=== PATIENT | male | born 1985 | race Caucasian/White ===

== ENCOUNTER 2019-12-04 15:57 | Emergency (ER) | payer BC ==
[2019-12-04] MEDS ORDERED: ACETAMINOPHEN 1000 MG/100 ML VIAL (NON FORMULARY) IVPB ONE (16:08)
[2019-12-04] MEDS ORDERED: SODIUM CHLORIDE 1,000 ML IV STA (16:08)
[2019-12-04] MEDS ORDERED: METOCLOPRAMIDE HCL INJECTION 10 MG/2 ML VIAL IVPB ONE (16:08)
[2019-12-04 16:09] VITALS: TEMP 99.1; BMI 25.0
--- NOTE | 2019-12-04 16:09 | PDOC ---
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 Admits to headache, nausea, vomiting and lightheadedness. Exam: No gross neuro deficits, VSS Orders: labs, IVF, meds Pt to proceed to the ER for further evaluation Discharge Disposition - Diagnosis Headache Qualifiers: Headache type: unspecified Headache chronicity pattern: acute headache Intractability: not intractable Qualified Code(s): R51 - Headache - Referrals - Patient Instructions - Post Discharge Activity
[2019-12-04 17:16] LABS: PH,URINE 6.5 (5.0-8.0); URINE APPEARANCE CLEAR; URINE BILIRUBIN NEGATIVE (NEGATIVE); URINE COLOR YELLOW; URINE GLUCOSE (UA) NEGATIVE (NEGATIVE); URINE KETONE TRACE (NEGATIVE); URINE LEUK ESTERASE NEGATIVE (NEGATIVE); URINE NITRITE NEGATIVE (NEGATIVE); URINE PROTEIN NEGATIVE (NEGATIVE); URINE UROBILINOGEN 0.2 mg/dL (0.2-1.0)
[2019-12-04 17:17] LABS: BASO % 0.5 % (0-2.0); EOS % 0.6 % (0-4.5); HEMATOCRIT 43.7 % (35.4-49); HEMOGLOBIN 14.6 GM/dL (11.7-16.9); LYMPH % 12.9 % (8-40); MCH 31.9 pg (25.7-33.7); MCHC 33.4 g/dl (32.0-35.9); MEAN CELL VOLUME 95.3 fl (80-96); MEAN PLT VOLUME 9.1 fl (7.5-11.1); MONO % 12.1 % (3.8-10.2); NEUT % 73.9 % (42.8-82.8); PLATELET COUNT 209 K/MM3 (134-434); RBC 4.58 M/mm3 (4.00-5.60); RDW 13.2 % (11.9-15.9); WHITE BLOOD COUNT 5.6 K/mm3 (4.0-10.0)
[2019-12-04] MEDS ORDERED: ACETAMINOPHEN INJECTION 100 ML IVPB ONE (17:20)
[2019-12-04] MEDS ORDERED: METOCLOPRAMIDE HCL INJECTION 10 MG/2 ML VIAL ONE (17:20)
--- NOTE | 2019-12-04 17:24 | PDOC ---
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 Patient reported he has been feeling headache, lightheadedness, heaviness in the head and nausea since incident. Patient has not taken anything for symptoms. Denies history of migraines. Denies blurry vision, change in vision. Denies head trauma. Denies any other symptoms Past History - Medical History Allergies/Adverse Reactions: Allergies Allergy/AdvReac Type Severity Reaction Status Date / Time amoxicillin [Amoxicillin] Allergy Verified 12/04/19 16:05 Penicillins Allergy Verified 12/04/19 16:05 Asthma: Yes COPD: No - Immunization History Immunization Up to Date: Yes - Psycho-Social/Smoking History Smoking Status: Yes Smoking History: Never smoked Number of Cigarettes Smoked Daily: 12 - Substance Abuse Hx (Audit-C & DAST Scrn) How often the patient has a drink containing alcohol: 2-4 times / month Number of drinks the patient has on a typical day: 5 or 6 How often the patient has six or more drinks on one occasion: Weekly Score: In Men: 4 or > Positive; In Women: 3 or > Positive: 7 Screen Result (Pos requires Nsg. Audit-10AR): Positive In the last yr the pt used illegal drug/Rx for NonMed reason: No Score: Yes response is considered Positive: 0 Screen Result (Positive result requires Nsg. DAST-10): Negative Review of Systems - Review of Systems Able to Perform ROS?: Yes Is the patient limited Kyr[place]z proficient: No Constitutional: No: Chills, Fever, Malaise HEENTM: No: Symptoms Reported, See HPI, Eye Pain, Blurred Vision, Tearing, Recent change in vision, Double Vision, Cataracts, Ear Pain, Ocular Prothesis, Ear Discharge, Nose Pain, Nose Congestion, Tinnitus, Nose Bleeding, Hearing Loss, Throat Pain, Throat Swelling, Mouth Pain, Dental Problems, Difficulty Swallowing, Mouth Swelling, Other Respiratory: No: Symptoms reported, See HPI, Cough, Orthopnea, Shortness of Breath, SOB with Exertion, SOB at Rest, Stridor, Wheezing, Productive cough, Hemoptysis, Other Cardiac (ROS): Yes: Symptoms Reported, See HPI, Lightheadedness. No: Chest Pain, Edema, Irregular Heart Rate, Palpitations, Syncope, Chest Tightness, Other ABD/GI: Yes: Symptoms Reported, See HPI, Nausea, Vomiting. No: Constipated, Diarrhea, Abdominal cramping Musculoskeletal: No: Symptoms Reported Integumentary: No: Symptoms Reported Neurological: Yes: Symptoms reported, See HPI, Headache. No: Pre-Existing Deficit, Seizure, Weakness, Unsteady Gait, Dizziness All Other Systems: Reviewed and Negative *Physical Exam - Vital Signs Last Vital Signs Temp Pulse Resp BP Pulse Ox 99.1 F 112 H 18 164/101 H 98 12/04/19 16:05 12/04/19 16:05 12/04/19 16:05 12/04/19 16:05 12/04/19 16:05 - Physical Exam 12/04/19 17:25 GENERAL: Well developed, well nourished. Awake and alert. No acute distress. HEENT: Normocephalic, atraumatic. PERRLA, EOMI. No conjunctival pallor. Sclera are non- icteric. Moist mucous membranes. Oropharynx is clear. NECK: Supple. Full ROM. No JVD. . No thyromegaly. No lymphadenopathy. CARDIOVASCULAR: Regular rate and rhythm. No murmurs, rubs, or gallops. Distal pulses are 2+ and symmetric. PULMONARY: No evidence of respiratory distress. Lungs clear to auscultation bilaterally. No wheezing, rales or rhonchi. ABDOMINAL: Soft. Non-tender. Non-distended. No rebound or guarding. No organomegaly. Normoactive bowel sounds. MUSCULOSKELETAL Normal range of motion at all joints. SKIN: Warm and dry. Normal capillary refill. No rashes. No jaundice. NEUROLOGICAL: Alert, awake, appropriate. Cranial nerves 2-12 intact. No deficits to light touch in face, upper extremities and lower extremities. No motor deficits in the in face, upper extremities and lower extremities. Normal speech. Gait is normal without ataxia. PSYCHIATRIC: Cooperative. Good eye contact. Appropriate mood and affect. General Appearance: Yes: Nourished, Appropriately Dressed. No: Apparent Distress ED Treatment Course - LABORATORY CBC & Chemistry Diagram: 12/04/19 16:39 12/04/19 16:41 - ADDITIONAL ORDERS Additional order review: Laboratory Results 12/04/19 14:20 Urine Color Yellow Urine Appearance Clear Urine pH 6.5 Ur Specific [place] 1.010 Urine Protein Negative Urine Glucose (UA) Negative Urine Ketones Trace H Urine Blood Negative Urine Nitrite Negative Urine Bilirubin Negative Urine Urobilinogen 0.2 Ur Leukocyte Esterase Negative Medical Decision Making - Medical Decision Making 12/04/19 17:22 Patient with a history of asthma presented with complaint of headache, lightheadedness and nausea with vomiting 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 Patient reported he has been feeling headache, lightheadedness, heaviness in the head and nausea since incident. Patient has not taken anything for symptoms. Denies history of migraines. Denies blurry vision, change in vision. Denies head trauma. Denies any other symptoms Clinical exam unremarkable with normal neuro exam. Patient in no acute distress. Pupil equal and reflective to light bilateral. No pupil dilation or constriction. Patient walking with normal gait. Patient symptoms likely had a fall carbon monoxide inhalation. EKG shows normal sinus rhythm. Will do carboxyhemoglobin and basic blood work CBC and chemistry. IV hydration 1 L normal saline, Reglan 10 mg IV, Benadryl 12.5 mg IV and Tylenol 1 g IV ordered from triage for migraine headache. Reassess after lab result 12/04/19 19:11 CBC and chemistry lab unremarkable. ABG arterial gas normal. Patient reported complete improvement of symptoms with IV medication and hydration. Patient stable for discharge with advised to increase fluid intake, rest and follow-up with PCP. Discharge - Discharge Information Problems reviewed: Yes Clinical Impression/Diagnosis: Light headedness Headache Qualifiers: Headache type: unspecified Headache chronicity pattern: acute headache Intractability: not intractable Qualified Code(s): R51 - Headache Condition: Improved Disposition: HOME - Admission No - Follow up/Referral - Patient Discharge Instructions Patient Printed Discharge Instructions: DI for Carbon Monoxide Poisoning Additional Instructions: Your blood work is normal. Your lightheadedness likely caused by inhalation of carbon monoxide. You can take Tylenol as needed for headache. Increase fluid intake. Follow-up with your primary care - Post Discharge Activity
[2019-12-04 17:41] LABS: ALBUMIN 4.2 g/dl (3.4-5.0); BILIRUBIN,TOTAL 2.1 mg/dL (0.2-1); BLOOD UREA NITROGEN 11.7 mg/dL (7-18); CALCIUM 9.1 mg/dL (8.5-10.1); CREATININE 0.8 mg/dL (0.55-1.3); POTASSIUM 4.1 mmol/L (3.5-5.1); TOT PROT 8.2 g/dl (6.4-8.2)
[2019-12-04 18:38] LABS: ARTERIAL BLD GAS O2 SATURATION 97.5 mmHg (95-98); ARTERIAL BLOOD GAS BASE EXCESS 0.6 mmol/L (-2-2); ARTERIAL BLOOD GAS PO2 93.6 mmHg (80-100); ARTERIAL BLOOD GAS pH 7.446 (7.350-7.450)
[2019-12-04 18:59] VITALS: BP 124/90; PULSE 80
--- NOTE | 2019-12-05 10:17 | EKG ---
Test Reason : Blood Pressure : / mmHG Vent. Rate : 095 BPM Atrial Rate : 095 BPM P-R Int : 128 ms QRS Dur : 086 ms QT Int : 354 ms P-R-T Axes : 071 047 032 degrees QTc Int : 444 ms NORMAL SINUS RHYTHM WITH SINUS ARRHYTHMIA NORMAL ECG WHEN COMPARED WITH ECG OF 20-AUG-2008 09:49, VENT. RATE HAS INCREASED BY 33 BPM Confirmed by MD Juan Daniel, Ayaan ([id number]) on 12/05/2019 10:17:28 AM Referred By: Confirmed By:Ayaan Frances MD
== END 2019-12-04 19:07 | disposition home or self-care (01) ==
LOC: JER 15:57
PROC: 3E0333Z Introduction of Anti-inflammatory into Peripheral Vein, Percutaneous Approach (ICD-10-PCS; principal; 2019-12-04)
PROC: 3E033GC Introduction of Other Therapeutic Substance into Peripheral Vein, Percutaneous Approach (ICD-10-PCS; 2019-12-04)
PROC: 3E0337Z Introduction of Electrolytic and Water Balance Substance into Peripheral Vein, Percutaneous Approach (ICD-10-PCS; 2019-12-04)
DX: R51 Headache (principal); R42 Dizziness and giddiness
CPT/HCPCS: 36415; 36600; 80053; 81003; 82375; 82803; 85025; 87077; 87086; 93005; 93010; 99284-25; J0131

== ENCOUNTER 2021-11-14 09:49 | Inpatient (IN) | payer BC ==
[2021-11-14] MEDS ORDERED: diazePAM CARPU-JECT 10 MG/2 ML DISP.SYRIN IVPUSH ONE ×4 (10:32→12:41)
[2021-11-14] MEDS ORDERED: LACTATED RINGERS SOLUTION 1000 ML INFUS.BAG IV ONE ×2 (10:32→11:21)
[2021-11-14] MEDS ORDERED: FAMOTIDINE 20 MG/50 ML IVPB 20 MG/50 ML MG IVPB ONE ×2 (10:32→10:53)
[2021-11-14] MEDS ORDERED: diazePAM CARPU-JECT 10 MG/2 ML DISP.SYRIN ONE ×4 (10:34→13:04)
[2021-11-14 10:41] LABS: BASO % 0.4 % (0-2.0); EOS % 0.4 % (0-4.5); HEMATOCRIT 44.9 % (35.4-49); HEMOGLOBIN 15.5 GM/dL (11.7-16.9); LYMPH % 6.6 % (8-40); MCH 31.8 pg (25.7-33.7); MCHC 34.5 g/dl (32.0-35.9); MEAN CELL VOLUME 92.2 fl (80-96); MEAN PLT VOLUME 8.7 fl (7.5-11.1); MONO % 5.2 % (3.8-10.2); NEUT % 87.4 % (42.8-82.8); PLATELET COUNT 216 10^3/uL (134-434); RBC 4.87 M/mm3 (4.00-5.60); RDW 12.9 % (11.9-15.9); VENOUS BASE EXCESS 0.4 mmol/L (-2-2); VENOUS PCO2 29.1 mmHg (38-52); VENOUS PH 7.5 (7.310-7.410); WHITE BLOOD COUNT 11.5 K/mm3 (4.0-10.0)
[2021-11-14 10:47] LABS: INR 1.03 (0.83-1.09); PROTHROMBIN TIME (PATIENT) 11.9 SEC (9.7-13.0)
[2021-11-14 10:49] LABS: ACTIVATED PTT 29.9 SECONDS (25.2-36.5)
[2021-11-14] MEDS ORDERED: THIAMINE HCL 200 MG/2 ML VIAL IVPB ONE (10:57)
[2021-11-14] MEDS ORDERED: THIAMINE HCL 200 MG/2 ML VIAL ONE (11:00)
[2021-11-14 11:04] LABS: CHLORIDE 102 mmol/L (98-107); SODIUM 139 mmol/L (136-145)
[2021-11-14 11:06] LABS: ALBUMIN 4.2 g/dl (3.4-5.0)
[2021-11-14 11:07] LABS: ANION GAP 14 MMOL/L (8-16); CALCIUM 8.7 mg/dL (8.5-10.1); CO2 23 mmol/L (21-32); GLUCOSE,RANDOM 125 mg/dL (74-106); LIPASE 113 U/L (73-393); MAGNESIUM 1.8 mg/dL (1.8-2.4)
[2021-11-14 11:09] LABS: SGPT/ALT 68 U/L (13-61)
[2021-11-14 11:10] LABS: CREATININE 0.8 mg/dL (0.55-1.3); SGOT/AST 51 U/L (15-37)
[2021-11-14 11:11] LABS: BILIRUBIN,TOTAL 1.9 mg/dL (0.2-1); TOT PROT 8.3 g/dl (6.4-8.2)
[2021-11-14 11:12] LABS: ALK PHOS 81 U/L (45-117)
[2021-11-14] MEDS ORDERED: ACETAMINOPHEN 1000 MG/100 ML BAG IVPB ONE (11:28)
[2021-11-14] MEDS ORDERED: ACETAMINOPHEN INJECTION 100 ML IVPB ONE (11:44)
[2021-11-14] MEDS ORDERED: ONDANSETRON 4 MG/2 ML VIAL IVPUSH ONE (11:54)
[2021-11-14] MEDS ORDERED: ONDANSETRON 4 MG/2 ML VIAL ONE (12:03)
[2021-11-14] MEDS ORDERED: LORazepam 2 MG/ML SDV VIAL IVPUSH PRN (13:59)
[2021-11-14] MEDS ORDERED: FOLIC ACID 1 MG TABLET (FP) ONE (15:07)
[2021-11-14] MEDS ORDERED: MULTIVITAMINS (DAILY MVI) TABLET (FP) ONE (15:07)
[2021-11-14] MEDS: FOLIC ACID 1 MG TABLET (FP) PO SCH (16:05)
[2021-11-14] MEDS: MULTIVITAMINS (DAILY MVI) TABLET (FP) PO SCH (16:05)
[2021-11-14] MEDS ORDERED: ACETAMINOPHEN 1000 MG/100 ML BAG IVPB PRN (17:48)
[2021-11-14] MEDS ORDERED: morphine SULFATE 4 MG/ML VIAL ONE (18:00)
[2021-11-14] MEDS ORDERED: CEFTRIAXONE 1 GM/50 ML BAG ONE (18:00)
[2021-11-14] MEDS: CEFTRIAXONE 1 GM in DEXTROSE 5%-WATER - 50 ML IVPB SCH (18:11)
[2021-11-14] MEDS: morphine SULFATE 4 MG/ML VIAL IVPUSH PRN (18:11)
[2021-11-14] MEDS ORDERED: ALBUTEROL SO4 HFA INHALER IH PRN (19:40)
[2021-11-14] MEDS: DEXTROSE 5%-NORMAL SALINE 1,000 ML IV SCH (20:24)
[2021-11-15 05:16] LABS: PH,URINE 6.5 (5.0-8.0); URINE APPEARANCE CLEAR; URINE BILIRUBIN NEGATIVE (NEGATIVE); URINE COLOR YELLOW; URINE GLUCOSE (UA) NEGATIVE (NEGATIVE); URINE KETONE 1+ (NEGATIVE); URINE LEUK ESTERASE NEGATIVE (NEGATIVE); URINE NITRITE NEGATIVE (NEGATIVE); URINE PROTEIN NEGATIVE (NEGATIVE); URINE UROBILINOGEN 0.2 mg/dL (0.2-1.0)
[2021-11-15 05:24] LABS: URINE BARBITURATES NEGATIVE (NEGATIVE)
[2021-11-15 05:25] LABS: PHENCYCLIDINE,URINE NEGATIVE (NEGATIVE)
[2021-11-15 05:41] LABS: COCAINE, UR NEGATIVE (NEGATIVE); METHADONE, UR NEGATIVE (NEGATIVE); OPIATES, URI POSITIVE (NEGATIVE); URINE AMPHETAMINES NEGATIVE (NEGATIVE); URINE BENZODIAZEPINES POSITIVE (NEGATIVE)
[2021-11-15 06:32] LABS: BASO % 0.5 % (0-2.0); EOS % 3.1 % (0-4.5); HEMATOCRIT 42.2 % (35.4-49); HEMOGLOBIN 14.2 GM/dL (11.7-16.9); LYMPH % 18.9 % (8-40); MCH 31.9 pg (25.7-33.7); MCHC 33.7 g/dl (32.0-35.9); MEAN CELL VOLUME 94.6 fl (80-96); MEAN PLT VOLUME 9.6 fl (7.5-11.1); MONO % 10.4 % (3.8-10.2); NEUT % 67.1 % (42.8-82.8); PLATELET COUNT 168 10^3/uL (134-434); RBC 4.46 M/mm3 (4.00-5.60); WHITE BLOOD COUNT 5.6 K/mm3 (4.0-10.0)
[2021-11-15 07:51] LABS: CALCIUM 8.7 mg/dL (8.5-10.1)
[2021-11-15 07:52] LABS: BLOOD UREA NITROGEN 9.2 mg/dL (7-18); MAGNESIUM 2.1 mg/dL (1.8-2.4)
[2021-11-15 07:55] LABS: CREATININE 0.8 mg/dL (0.55-1.3); PHOSPHOROUS 2.4 mg/dL (2.5-4.9)
[2021-11-15 07:56] LABS: TOT PROT 7.6 g/dl (6.4-8.2)
[2021-11-15] MEDS ORDERED: THIAMINE HCL 200 MG/2 ML VIAL ONE (09:21)
[2021-11-15] MEDS ORDERED: FOLIC ACID 1 MG TABLET (FP) ONE (09:21)
[2021-11-15] MEDS ORDERED: PANTOPRAZOLE SODIUM 40 MG VIAL ONE (09:22)
[2021-11-15] MEDS ORDERED: MULTIVITAMINS (DAILY MVI) TABLET (FP) ONE (09:22)
[2021-11-15] MEDS ORDERED: CEFTRIAXONE 1 GM/50 ML BAG ONE (09:22)
[2021-11-15] MEDS: MULTIVITAMINS (DAILY MVI) TABLET (FP) PO SCH (09:39)
[2021-11-15] MEDS: FOLIC ACID 1 MG TABLET (FP) PO SCH (09:39)
[2021-11-15] MEDS: CEFTRIAXONE 1 GM in DEXTROSE 5%-WATER - 50 ML IVPB SCH (09:39)
[2021-11-15] MEDS ORDERED: morphine SULFATE 4 MG/ML VIAL ONE ×2 (09:40→18:46)
[2021-11-15] MEDS: THIAMINE HCL 200 MG/2 ML VIAL IVPB SCH (09:58)
[2021-11-15] MEDS ORDERED: PANTOPRAZOLE SODIUM 40 MG VIAL IVPUSH SCH (10:00)
[2021-11-15] MEDS ORDERED: ENOXAPARIN NA (PORCINE) 40 MG/0.4 ML DISP.SYRIN SQ SCH (10:00)
[2021-11-15] MEDS: morphine SULFATE 4 MG/ML VIAL IVPUSH PRN ×2 (10:06→18:52)
[2021-11-15] MEDS ORDERED: FOLIC ACID INJECTION - 1 MG, THIAMINE HCL 100 MG, MULTIVIT INJECTION ADULT 10 ML in SOD... IVPB ONE (10:30)
[2021-11-16] MEDS ORDERED: PANTOPRAZOLE SODIUM 40 MG VIAL ONE (00:56)
[2021-11-16] MEDS ORDERED: HEPARIN NA (PORCINE) 5,000 UNITS/ML 1ML VIAL ONE (00:56)
[2021-11-16] MEDS: HEPARIN NA (PORCINE) 5,000 UNITS/ML 1ML VIAL SQ SCH ×3 (01:11→21:45)
[2021-11-16] MEDS: PANTOPRAZOLE SODIUM 40 MG VIAL IVPUSH SCH ×3 (01:12→21:45)
[2021-11-16] MEDS ORDERED: morphine SULFATE 4 MG/ML VIAL ONE (01:13)
[2021-11-16] MEDS: morphine SULFATE 4 MG/ML VIAL IVPUSH PRN ×3 (01:17→21:45)
[2021-11-16] MEDS: DEXTROSE 5%-NORMAL SALINE 1,000 ML IV SCH ×2 (01:53→21:46)
[2021-11-16 03:41] VITALS: BMI 28.8
[2021-11-16 08:42] LABS: INR 1.06 (0.83-1.09); PROTHROMBIN TIME (PATIENT) 12.2 SEC (9.7-13.0)
[2021-11-16 08:48] LABS: CALCIUM 8.1 mg/dL (8.5-10.1)
[2021-11-16 08:49] LABS: MAGNESIUM 2.2 mg/dL (1.8-2.4)
[2021-11-16 08:50] LABS: BLOOD UREA NITROGEN 7.9 mg/dL (7-18)
[2021-11-16 08:52] LABS: CREATININE 0.7 mg/dL (0.55-1.3)
[2021-11-16 08:53] LABS: PHOSPHOROUS 3.3 mg/dL (2.5-4.9)
[2021-11-16 08:54] LABS: TOT PROT 6.4 g/dl (6.4-8.2)
[2021-11-16 08:55] LABS: BILIRUBIN,TOTAL 1.4 mg/dL (0.2-1)
[2021-11-16 09:02] LABS: ALBUMIN 3.2 g/dl (3.4-5.0)
[2021-11-16 09:07] LABS: BASO % 0.3 % (0-2.0); EOS % 4.1 % (0-4.5); HEMOGLOBIN 13.3 GM/dL (11.7-16.9); MCHC 33.3 g/dl (32.0-35.9); MEAN CELL VOLUME 95.9 fl (80-96); MEAN PLT VOLUME 9.5 fl (7.5-11.1); MONO % 10.5 % (3.8-10.2); NEUT % 67.1 % (42.8-82.8); PLATELET COUNT 130 10^3/uL (134-434); RBC 4.17 M/mm3 (4.00-5.60); RDW 13.1 % (11.9-15.9); WHITE BLOOD COUNT 4.1 K/mm3 (4.0-10.0)
[2021-11-16] MEDS: THIAMINE HCL 200 MG/2 ML VIAL IVPB SCH (09:30)
[2021-11-16] MEDS: CEFTRIAXONE 1 GM in DEXTROSE 5%-WATER - 50 ML IVPB SCH (09:30)
[2021-11-16] MEDS: MULTIVITAMINS (DAILY MVI) TABLET (FP) PO SCH (09:31)
[2021-11-16] MEDS: FOLIC ACID 1 MG TABLET (FP) PO SCH (09:32)
[2021-11-17] MEDS ORDERED: THIAMINE HCL 100 MG TABLET (FP) PO SCH (10:00)
[2021-11-17] MEDS: HEPARIN NA (PORCINE) 5,000 UNITS/ML 1ML VIAL SQ SCH ×2 (11:16→21:22)
[2021-11-17] MEDS: CEFTRIAXONE 1 GM in DEXTROSE 5%-WATER - 50 ML IVPB SCH (11:17)
[2021-11-17] MEDS: MULTIVITAMINS (DAILY MVI) TABLET (FP) PO SCH (11:17)
[2021-11-17] MEDS: PANTOPRAZOLE SODIUM 40 MG VIAL IVPUSH SCH ×2 (11:17→21:22)
[2021-11-17] MEDS: FOLIC ACID 1 MG TABLET (FP) PO SCH (11:18)
[2021-11-17 11:22] LABS: BASO % 0.7 % (0-2.0); HEMATOCRIT 44.2 % (35.4-49); LYMPH % 14.8 % (8-40); MCH 32.3 pg (25.7-33.7); MEAN CELL VOLUME 94.9 fl (80-96); MEAN PLT VOLUME 8.9 fl (7.5-11.1); MONO % 11.2 % (3.8-10.2); NEUT % 68.3 % (42.8-82.8); PLATELET COUNT 150 10^3/uL (134-434); RBC 4.65 M/mm3 (4.00-5.60); RDW 13.1 % (11.9-15.9); WHITE BLOOD COUNT 4.4 K/mm3 (4.0-10.0)
[2021-11-17 11:26] LABS: INR 1.09 (0.83-1.09); PROTHROMBIN TIME (PATIENT) 12.6 SEC (9.7-13.0)
[2021-11-17 11:45] LABS: ALBUMIN 3.6 g/dl (3.4-5.0); MAGNESIUM 2.3 mg/dL (1.8-2.4)
[2021-11-17 11:46] LABS: CALCIUM 8.6 mg/dL (8.5-10.1)
[2021-11-17 11:47] LABS: BLOOD UREA NITROGEN 4.9 mg/dL (7-18)
[2021-11-17 11:48] LABS: CREATININE 0.7 mg/dL (0.55-1.3)
[2021-11-17 11:50] LABS: PHOSPHOROUS 2.7 mg/dL (2.5-4.9); TOT PROT 7.4 g/dl (6.4-8.2)
[2021-11-17 18:28] VITALS: RESP 18
[2021-11-17 20:18] VITALS: BP 125/85; PULSE 79; TEMP 98.4
[2021-11-18] MEDS: DEXTROSE 5%-NORMAL SALINE 1,000 ML IV SCH (00:23)
== END 2021-11-18 02:00 | disposition short-term general hospital (02) | DRG 395 ==
LOC: JER 09:49 → JERBED 13:03 → J5S 11-16 01:48
PROVIDERS: ADMIT Internal Medicine; ATTEND Nurse Practitioner Family
PROC: 0DB68ZX Excision of Stomach, Via Natural or Artificial Opening Endoscopic, Diagnostic (ICD-10-PCS; principal; 2021-11-17 11:30)
DX: T18.2XXA Foreign body in stomach, initial encounter (principal); L40.9 Psoriasis, unspecified; J45.909 Unspecified asthma, uncomplicated; R00.0 Tachycardia, unspecified; R07.89 Other chest pain; D72.829 Elevated white blood cell count, unspecified; F41.9 Anxiety disorder, unspecified; K76.0 Fatty (change of) liver, not elsewhere classified; F10.10 Alcohol abuse, uncomplicated; F12.19 Cannabis abuse with unspecified cannabis-induced disorder; R11.10 Vomiting, unspecified; D69.6 Thrombocytopenia, unspecified; K31.89 Other diseases of stomach and duodenum; K82.8 Other specified diseases of gallbladder; K80.20 Calculus of gallbladder without cholecystitis without obstruction; K29.60 Other gastritis without bleeding; R16.1 Splenomegaly, not elsewhere classified; X58.XXXA Exposure to other specified factors, initial encounter; Y93.9 Activity, unspecified
CPT/HCPCS: 0241U-QW; 36415; 71045-TC-FY; 74177-TC; 74181-TC; 76705-TC; 80053; 80061; 80307; 81003; 82803; 82962; 83605; 83690; 83735; 84100; 84439; 84443; 84484; 85025; 85610; 85730; 87040; 87086; 88305-TC; 93005; 93010; 93306-TC; 99291; C9803-CS; J1644; Q9967; U0003; U0005